=== PATIENT | female | born 1940 | race Hispanic/Latino ===

== ENCOUNTER → 2018-09-16 | Day surgery (SDC) | payer OTHER ==
[2018-09-14 10:04] LABS: BASOPHILS % 0.6 % (0.0-1.0); EOSINOPHILS # (AUTO) 0.2 (0.0-0.4); EOSINOPHILS % 2.8 % (0.0-6.0); HEMATOCRIT 33.4 % (34.2-44.1); HEMOGLOBIN 10.8 g/dL (12.0-16.0); LYMPHOCYTES # (AUTO) 1.7 (1.0-3.2); LYMPHOCYTES % 24.2 % (18.0-39.1); MEAN CORPUSCULAR HGB CONC 32.3 g/dL (31-35); MEAN CORPUSCULAR VOLUME 92.8 fL (81-99); MONOCYTES # (AUTO) 0.6 (0.2-0.8); NEUTROPHILS # (AUTO) 4.4 (2.1-6.9); PLATELET COUNT 265 x10e3/uL (140-360); RED CELL DISTRIBUTION WIDTH 14.2 % (11.7-14.4)
[~2018-09-16] MED LIST: ADVAIR 250-501 EACH INH; ATORVASTATIN CA10 MG PO; CALCIUM CARBON500 MG PO; CRESTOR10 MG PO; FERROUS SULFAT324 MG PO; FISH OIL 1,2001 EACH PO; FLUTICASONE PRO16 GM; MELOXICAM7.5 MG PO; MIDAZOLAM HCL 2 MG/2 ML VIAL ONE; OMEPRAZOLE40 MG PO; ONDANSETRON2 MG/1 ML PO; OXYBUTYNIN CHLOR5 MG PO; PROPOFOL IV EMULSION 10 MG/ML 20 ML VIAL ONE; VITAMIN B-121000 MC2 PO; VITAMIN D31000 UNIT PO
--- OUTSIDE RECORDS SUMMARY | 2018-09-16 07:25 | XMS REPORT ---
Author Author [facility] Address Unknown Phone Unavailable Care Team Providers Care Director Of Real Estate Name Role Phone Unavailable Unavailable Payers Payer Name Policy Type Policy Number Effective Date Expiration Date Problems This patient has no known problems. Allergies, Adverse Reactions, Alerts Allergy Name Allergy Type Status Severity Reaction(s) Onset Date Inactive Date Treating Clinician Comments No Known Allergies DA Active U 2016-10-17 00:00:00 Medications This patient has no known medications.
--- OUTSIDE RECORDS SUMMARY | 2018-09-16 07:26 | XMS REPORT ---
Author Organization Unknown Address [address] [place] [address] Phone [phone] Care Team Providers [facility] Director Name Role Phone RASHEL "ALYSE" SAIMA BROWN 3 [phone] DAMEON GEORGE 63 Unavailable DA BROWN MD 107 [phone] CHANTALE LUO MD 111 [phone] Allergies Code Code System Name Reaction Severity Status Onset No Known Allergies Deactivated NKDA Medications Name Status Start Date Stop Date acetaminophen 300 mg-codeine 30 mg tablet Completed 11/28/2016 Advair Diskus 250 mcg-50 mcg/dose powder for inhalation inhalar 1 actuacion dos veces cada everardo todos los carney Active Not available atorvastatin 40 mg tablet TAKE 1 TABLET BY MOUTH EVERY DAY Completed 01/05/2018 chlorhexidine gluconate 0.12 % mouthwash Completed 08/05/2016 diazepam 5 mg tablet negro 1 tableta por via oral hasta 3 veces cada everardo Active Not available Dulcolax Stool Softener (docusate) 100 mg capsule negro 2 capsulas por via oral dread vez cada everardo por jose necearia estrenimiento Active Not available fluticasone 50 mcg/actuation nasal spray,suspension Active Not available Fluzone High-Dose 4593-3694 (PF) 180 mcg/0.5 mL intramuscular syringe Completed 08/21/2017 Generlac 10 gram/15 mL oral solution Completed 02/26/2017 ketoconazole 2 % topical cream Completed 09/23/2017 meloxicam 15 mg tablet negro 1 tableta por via oral dread vez cada everardo Active Not available meloxicam 7.5 mg tablet Completed 01/10/2018 omeprazole 40 mg capsule,delayed release Active Not available oxybutynin chloride ER 10 mg tablet,extended release 24 hr negro 1 tableta por via oral dread vez cada everardo Active Not available rosuvastatin 20 mg tablet negro 1 tableta por via oral dread vez cada everardo Active Not available Suprep Bowel Prep Kit 17.5 gram-3.13 gram-1.6 gram oral solution Completed 02/26/2017 tramadol 50 mg tablet negro 1 tableta por via oral hasta 3 veces cada everardo por jose taylor patel Active Not available Travatan Z 0.004 % eye drops Completed 08/21/2017 triamcinolone acetonide 0.1 % topical cream Active Not available Problems Name Status Onset Date Source Pure Hypercholesterolemia Active 09/11/2015 History Glaucoma Active 09/11/2015 History Varicose Veins of Lower Extremity with Inflammation Unknown 09/11/2015 History Gill's Esophagus Unknown 09/11/2015 History 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 and without Gangrene Unknown 09/11/2015 History Diaphragmatic Hernia Unknown 09/11/2015 History Genuine Stress Incontinence Active 09/11/2015 History Itching Unknown 09/11/2015 History Osteoarthritis of Hip Active 09/11/2015 History Spinal Stenosis in Cervical Region Active 09/11/2015 History Neck Pain Active 09/11/2015 History Gastroesophageal Reflux Disease Active 08/05/2016 Constipation Active 11/28/2016 Prediabetes Active 09/23/2017 Chronic Obstructive Lung Disease Active 01/08/2018 Procedures Date Name Performed by 01/27/2017 Colonoscopy Information not available 11/28/2016 Bone Density, Dual Photon Absorptiometry [employer] [facility] ([facility]) [address] [place], [place] [id number] (Work Place) 04/08/2017 XR, Ankle, 3 or More View [facility] ([facility]) [address] [place], [place] [id number] (Work Place) 04/08/2017 XR, Foot, 2 View [facility] ([facility]) [address] [place], [place] [id number] (Work Place) 06/17/2017 MAMMO, Screening, Bilateral [facility] [address] [place], [place] [id number] (Work Place) Notes: 02/19/2016: S/P x 2; Surgery Date: [id number] S/P Bilateral Bunion Surgery; Surgery Date: 1994 S/P R Carpal Tunnel Surgery; Surgery Date: 2004 S/P Bilateral Cataract Surgery; Surgery Date: S/P Bilateral Glaucoma Surgery; Surgery Date: 1992 Lab Results Date Name Specimen Result Interpretation Description Value Range Status Address 01/05/2018 Lipid Panel, Serum Normal Cholesterol, Total 157 mg/dL <200 mg/dL Final [facility]: [address] Normal HDL Cholesterol 90 mg/dL >50 mg/dL Final [facility]: [address] Normal Triglycerides 63 mg/dL <150 mg/dL Final [facility]: [address] Normal LDL-cholesterol 53 mg/dL (calc) Final [facility]: [address] Normal Chol/hdlc Ratio 1.7 (calc) <5.0 (calc) Final [facility]: [address] Normal Non HDL Cholesterol 67 mg/dL (calc) <130 mg/dL (calc) Final [facility]: [address] 01/05/2018 HbA1C (Hemoglobin a1C), Blood High Hemoglobin a1C 5.9 % of total HGB <5.7 % of total HGB Final [facility]: [address] EAG (mg/dL) 123 (calc) Final [facility]: [address] EAG (mmol/L) 6.8 (calc) Final [facility]: [address] 01/05/2018 CMP, Serum or Plasma Normal Glucose 94 mg/dL 65-99 mg/dL Final [facility]: [address] Normal Urea Nitrogen (BUN) 13 mg/dL 7-25 mg/dL Final [facility]: [address] Normal Creatinine 0.74 mg/dL 0.60-0.93 mg/dL Final [facility]: [address] Normal eGFR Non-afr. Nauruan 79 mL/min/1.73m2 > or=60 mL/min/1.73m2 Final [facility]: [address] Normal eGFR 92 mL/min/1.73m2 > or=60 mL/min/1.73m2 Final [facility]: [address] Loza [address] BUN/creatinine Ratio not applicable (calc) 6-22 (calc) Final [facility]: 9055 [facility] Sodium 138 mmol/L 135-146 mmol/L Final [facility]: [address] Su[address] [place] [address] Normal Potassium 4.9 mmol/L 3.5-5.3 mmol/L Final [facility]: 9055 Katy Loza [facility] Chloride 99 mmol/L 98-110 mmol/L Final [facility]: [address] Loza [address] Normal Carbon Dioxide 30 mmol/L 20-31 mmol/L Final [facility]: [address] Lo[address] Normal Calcium 10.1 mg/dL 8.6-10.4 mg/dL Final [facility]: [address] Normal Protein, Total 7.3 g/dL 6.1-8.1 g/dL Final [facility]: [address] Normal Albumin 4.1 g/dL 3.6-5.1 g/dL Final [facility]: [address] Normal Globulin 3.2 g/dL (calc) 1.9-3.7 g/dL (calc) Final [facility]: [address] Normal Albumin/globulin Ratio 1.3 (calc) 1.0-2.5 (calc) Final [facility]: [address] Normal Bilirubin, Total 0.7 mg/dL 0.2-1.2 mg/dL Final [facility]: [address] Su[address] [place] [address] Normal Alkaline Phosphatase 60 U/L 33-130 U/L Final [facility]: [address] Loza [address] Normal Ast 22 U/L 10-35 U/L Final [facility]: [address] Loza [address] Normal Alt 18 U/L 6-29 U/L Final [facility]: 9055 [facility] 01/05/2018 TSH, Serum or Plasma Normal Tsh 1.36 mIU/L 0.40-4.50 mIU/L Final [facility]: 9055 Ney Kilpatrick 01/05/2018 CBC W/ Auto Diff Normal White Blood Cell Count 6.9 thousand/uL 3.8-10.8 thousand/uL Final [facility]: [address] Ney [address] Normal Red Blood Cell Count 4.13 million/uL 3.80-5.10 million/uL Final [facility]: 9042 [address] Normal Hemoglobin 12.7 g/dL 11.7-15.5 g/dL Final [facility]: 9085 Katy Ryan [address] Normal Hematocrit 38.7 % 35.0-45.0 % Final [facility]: 9033 Katy Ryan Cash Normal Mcv 93.7 fL 80.0-100.0 fL Final [facility]: 9033 Katy Ryan [address] Normal Mch 30.8 pg 27.0-33.0 pg Final [facility]: 9057 Katy Ryan Cash Normal Mchc 32.8 g/dL 32.0-36.0 g/dL Final [facility]: 9039 Katy Ryan Cash Normal Rdw 12.4 % 11.0-15.0 % Final [facility]: 9031 Katy Ryan [address] Normal Platelet Count 261 thousand/uL 140-400 thousand/uL Final [facility]: 9009 Katy Ryan [address] Normal Mpv 8.8 fL 7.5-12.5 fL Final [facility]: 9003 Katy Ryan [address] Normal Absolute Neutrophils 3843 cells/uL 4178-9469 cells/uL Final [facility]: 9001 Katy Ryan Cash Normal Absolute Lymphocytes 2318 cells/uL 850-3900 cells/uL Final [facility]: 9070 Katy Ryan Cash Normal Absolute Monocytes 566 cells/uL 200-950 cells/uL Final [facility]: 9081 Katy Ryan Cash Normal Absolute Eosinophils 131 cells/uL 15-500 cells/uL Final [facility]: 9000 Katy Ryan Cash Normal Absolute Basophils 41 cells/uL 0-200 cells/uL Final [facility]: 9075 Katy Ryan Cash Normal Neutrophils 55.7 % Final [facility]: [address] Normal Lymphocytes 33.6 % Final [facility]: [address] Normal Monocytes 8.2 % Final [facility]: [address] Normal Eosinophils 1.9 % Final [facility]: [address] Normal Basophils 0.6 % Final [facility]: [address] [place] [address] 01/05/2018 T4, Total, Serum Normal T4 (Thyroxine), Total 9.3 mcg/dL 4.5-12.0 mcg/dL Final [facility]: [address] 01/05/2018 Spirometry Spirometry: [facility]: [address], Cash Fev1: [facility]: [address] [facility] [address], Cash Fvc: [facility]: [address] [facility] [address], Cash Restriction: [facility]: [address], Cash Obstruction: [facility]: [address] [facility] Suite [facility], Cash Notes: [facility]: [address] [place] [address], Cash 08/21/2017 Lipid Panel, Serum Normal Cholesterol, Total 149 mg/dL <200 mg/dL Final [facility]: [address] Normal HDL Cholesterol 80 mg/dL >50 mg/dL Final [facility]: [address] [place] [address] Normal Triglycerides 54 mg/dL <150 mg/dL Final [facility]: [address] Normal LDL-cholesterol 56 mg/dL (calc) Final [facility]: [address] Normal Chol/hdlc Ratio 1.9 (calc) <5.0 (calc) Final [facility]: [address] Normal Non HDL Cholesterol 69 mg/dL (calc) <130 mg/dL (calc) Final [facility]: [facility] [address] 08/21/2017 HbA1C (Hemoglobin a1C), Blood High Hemoglobin a1C 5.9 % of total HGB <5.7 % of total HGB Final [facility]: [address] EAG (mg/dL) 123 (calc) Final [facility]: 9055 Katy Ryan Cash EAG (mmol/L) 6.8 (calc) Final [facility]: 9055 Ney Kilpatrick 08/21/2017 CBC W/ Auto Diff Normal White Blood Cell Count 5.7 thousand/uL 3.8-10.8 thousand/uL Final [facility]: 9055 Katy Ryan Cash Normal Red Blood Cell Count 3.98 million/uL 3.80-5.10 million/uL Final [facility]: 9055 Katy Ryan Cash Normal Hemoglobin 11.7 g/dL 11.7-15.5 g/dL Final [facility]: 9055 Katy Ryan Cash Normal Hematocrit 37.6 % 35.0-45.0 % Final [facility]: 9055 Katy Ryan Cash Normal Mcv 94.5 fL 80.0-100.0 fL Final [facility]: 9055 Katy Ryan Cash Normal Mch 29.4 pg 27.0-33.0 pg Final [facility]: 9055 Katy Ryan Cash Low Mchc 31.1 g/dL 32.0-36.0 g/dL Final [facility]: 9055 Katy Ryan Cash Normal Rdw 13.0 % 11.0-15.0 % Final [facility]: 9055 Katy Ryan Cash Normal Platelet Count 267 thousand/uL 140-400 thousand/uL Final [facility]: 9055 Katy Ryan Cash Normal Mpv 8.9 fL 7.5-12.5 fL Final [facility]: 9055 Katy Ryan Cash Normal Absolute Neutrophils 3449 cells/uL 9489-6419 cells/uL Final [facility]: 9055 Katy Ryan Cash Normal Absolute Lymphocytes 1699 cells/uL 850-3900 cells/uL Final [facility]: 9055 [facility] Normal Absolute Monocytes 371 cells/uL 200-950 cells/uL Final [facility]: 9055 [facility] Normal Absolute Eosinophils 143 cells/uL 15-500 cells/uL Final [facility]: 9055 Katy Ryan Cash Normal Absolute Basophils 40 cells/uL 0-200 cells/uL Final [facility]: 9055 Katy Ryan, Cash Normal Neutrophils 60.5 % Final [facility]: [address], Cash Normal Lymphocytes 29.8 % Final [facility]: 9055 Katy Ryan, Cash Normal Monocytes 6.5 % Final [facility]: [address]055 [address] Lo[address] [place] [address], Cash Normal Eosinophils 2.5 % Final [facility]: 9055 [address] Lo[address] [place] [address], Cash Normal Basophils 0.7 % Final [facility]: 9055 [facility] 08/21/2017 CMP, Serum or Plasma Normal Glucose 95 mg/dL 65-99 mg/dL Final [facility]: [address] Loza [address] Normal Urea Nitrogen (BUN) 17 mg/dL 7-25 mg/dL Final [facility]: [address] Normal Creatinine 0.71 mg/dL 0.60-0.93 mg/dL Final [facility]: [address] Loza [address] Normal eGFR Non-afr. Nauruan 84 mL/min/1.73m2 > or=60 mL/min/1.73m2 Final [facility]: [address] Loza [address] Normal eGFR 97 mL/min/1.73m2 > or=60 mL/min/1.73m2 Final [facility]: [address] BUN/creatinine Ratio not applicable (calc) 6-22 (calc) Final [facility]: [address] Suarez [address] [place] [address] Normal Sodium 139 mmol/L 135-146 mmol/L Final [facility]: [address] Loza [address] Normal Potassium 5.1 mmol/L 3.5-5.3 mmol/L Final [facility]: [address] Suarez [address] [place] [address] Normal Chloride 101 mmol/L 98-110 mmol/L Final [facility]: [address] Loza [address] Normal Carbon Dioxide 31 mmol/L 20-31 mmol/L Final [facility]: [address] Loza [address] Normal Calcium 9.3 mg/dL 8.6-10.4 mg/dL Final [facility]: [address] [place] [address], Cash Normal Protein, Total 6.7 g/dL 6.1-8.1 g/dL Final [facility]: [address] [place] [address], Cash Normal Albumin 4.0 g/dL 3.6-5.1 g/dL Final [facility]: [address] Normal Globulin 2.7 g/dL (calc) 1.9-3.7 g/dL (calc) Final [facility]: [address] [place] [address], Cash Normal Albumin/globulin Ratio 1.5 (calc) 1.0-2.5 (calc) Final [facility]: [address] Normal Bilirubin, Total 0.5 mg/dL 0.2-1.2 mg/dL Final [facility]: [address] Normal Alkaline Phosphatase 56 U/L 33-130 U/L Final [facility]: [address] Normal Ast 20 U/L 10-35 U/L Final [facility]: [address] Normal Alt 17 U/L 6-29 U/L Final [facility]: [address] 06/17/2017 Pap, IG + HPV mRNA E6/E7 Normal Clinical Information: none given Final [facility]: [address] Normal Lmp: Na Final [facility]: [address] Normal Prev. Pap: Na Final [facility]: [address] Normal Prev. BX: Na Final [facility]: [address] Normal Source: cervix Final [facility]: [address] Normal Statement of Adequacy: Final [facility]: [address] Normal Interpretation/result: Final [facility]: [address] Normal Comment: Final [facility]: [address] Normal Rehabilitation Services Director: Final [facility]: [address] Normal Hpv Mrna E6/E7 not detected not detected Final [facility]: [address] [place] [address], Cash 02/26/2017 Rf (Rheumatoid Factor), Serum Normal Rheumatoid Factor 8 IU/mL <14 IU/mL Final [facility]: [address] [place] [address] 02/26/2017 T4, Total, Serum Normal T4 (Thyroxine), Total 7.1 mcg/dL 4.5-12.0 mcg/dL Final [facility]: [address] [place] [address] 02/26/2017 C-reactive Protein, Quantitative Normal C-reactive Protein <0.10 mg/dL <0.80 mg/dL Final [facility]: [address] [place] [address], Cash 02/26/2017 Ccp (Cyclic Citrullinated Peptide) Igg, Serum Normal Cyclic Citrullinated Peptide (Ccp) Ab (IgG) <16 units Final [facility]: [address] [place] [address] 02/26/2017 CMP, Serum or Plasma High Glucose 119 mg/dL 65-99 mg/dL Final [facility]: [address] [place] [address] Normal Urea Nitrogen (BUN) 23 mg/dL 7-25 mg/dL Final [facility]: [address] [place] [address] Normal Creatinine 0.76 mg/dL 0.60-0.93 mg/dL Final [facility]: [address] [place] [address] Normal eGFR Non-afr. Nauruan 77 mL/min/1.73m2 > or=60 mL/min/1.73m2 Final [facility]: [address] [place] [address] Normal eGFR 90 mL/min/1.73m2 > or=60 mL/min/1.73m2 Final [facility]: [address] [place] [address] BUN/creatinine Ratio not applicable (calc) 6-22 (calc) Final [facility]: [address] [place] [address] Normal Sodium 138 mmol/L 135-146 mmol/L Final [facility]: [address] [place] [address] Normal Potassium 4.6 mmol/L 3.5-5.3 mmol/L Final [facility]: [address] [place] [address] Normal Chloride 102 mmol/L 98-110 mmol/L Final [facility]: [address] Normal Carbon Dioxide 29 mmol/L 20-31 mmol/L Final [facility]: [address] Normal Calcium 9.2 mg/dL 8.6-10.4 mg/dL Final [facility]: [address] Normal Protein, Total 6.4 g/dL 6.1-8.1 g/dL Final [facility]: [address] Normal Albumin 3.7 g/dL 3.6-5.1 g/dL Final [facility]: [address] Normal Globulin 2.7 g/dL (calc) 1.9-3.7 g/dL (calc) Final [facility]: [address] Normal Albumin/globulin Ratio 1.4 (calc) 1.0-2.5 (calc) Final [facility]: [facility] [address] Normal Bilirubin, Total 0.5 mg/dL 0.2-1.2 mg/dL Final [facility]: [address] Normal Alkaline Phosphatase 60 U/L 33-130 U/L Final [facility]: [address] Normal Ast 18 U/L 10-35 U/L Final [facility]: [address] Normal Alt 15 U/L 6-29 U/L Final [facility]: [address] [place] [address] 02/26/2017 INDIO (Antinuclear Antibodies) Titer + Pattern, Ifa, Serum ABNORMAL INDIO Screen, Ifa positive negative Final [facility]: [facility] [address] ABNORMAL INDIO Pattern nucleolar Final [facility]: [facility] [address] High INDIO Titer 1:40 titer Final [facility]: [address] [place] [address] 02/26/2017 Erythrocyte Sedimentation Rate by Westergren Method Normal Sed Rate by Modified Westergren 9 mm/h < or=30 mm/h Final [facility]: [address] [place] [address] 02/26/2017 CBC W/ Auto Diff Normal White Blood Cell Count 4.1 thousand/uL 3.8-10.8 thousand/uL Final [facility]: 9055 Katy Ryan [address] Normal Red Blood Cell Count 3.84 million/uL 3.80-5.10 million/uL Final [facility]: 9055 [address] Ryan [address]ster Low Hemoglobin 11.4 g/dL 11.7-15.5 g/dL Final [facility]: 9055 [address] Ryan Cash Normal Hematocrit 35.3 % 35.0-45.0 % Final [facility]: 9055 [address] Ryan Cash Normal Mcv 91.9 fL 80.0-100.0 fL Final [facility]: 9055 [address]y Ryan Cash Normal Mch 29.8 pg 27.0-33.0 pg Final [facility]: 9055 Katy Ryan Cash Normal Mchc 32.5 g/dL 32.0-36.0 g/dL Final [facility]: [address] 15.5 % 11.0-15.0 % Final [facility]: 9066 Katy Ryan Cash Normal Platelet Count 236 thousand/uL 140-400 thousand/uL Final [facility]: 9002 Katy Ryan Cash Low Mpv 7.2 fL 7.5-12.5 fL Final [facility]: 9038 Katy Ryan Brewster Normal Absolute Neutrophils 2116 cells/uL 8402-6819 cells/uL Final [facility]: 9036 Katy Ryan Cash Normal Absolute Lymphocytes 1529 cells/uL 850-3900 cells/uL Final [facility]: 9043 Katy Ryan Cash Normal Absolute Monocytes 308 cells/uL 200-950 cells/uL Final [facility]: 9089 Katy Ryan Cash Normal Absolute Eosinophils 127 cells/uL 15-500 cells/uL Final [facility]: 9074 Katy Ryan Cash Normal Absolute Basophils 21 cells/uL 0-200 cells/uL Final [facility]: 9079 Katy Ryan Cash Normal Neutrophils 51.6 % Final [facility]: 9068 Katy Ryan Cash Normal Lymphocytes 37.3 % Final [facility]: 9035 Katy Ryan Cash Normal Monocytes 7.5 % Final [facility]: [address] Normal Eosinophils 3.1 % Final [facility]: [address] Normal Basophils 0.5 % Final [facility]: [address] [place] [address], Cash 02/26/2017 Vitamin D, 25-Hydroxy, Total, Serum Normal Vitamin D,25-Oh,total,ia 33 NG/mL 30-100 NG/mL [facility] [facility]: [address] [address], [place] 02/26/2017 TSH, Serum or Plasma Normal Tsh 2.45 mIU/L 0.40-4.50 mIU/L Final [facility] Laboratory: [address] [address], [place] 02/26/2017 Lipid Panel, Serum Normal Cholesterol, Total 132 mg/dL 125- 200 mg/dL Final [facility] Laboratory: [address] Normal HDL Cholesterol 71 mg/dL > or=46 mg/dL Final [facility] Laboratory: [address] Normal Triglycerides 77 mg/dL <150 mg/dL Final [facility] Laboratory: [address] Normal LDL-cholesterol 46 mg/dL (calc) <130 mg/dL (calc) Final [facility] Laboratory: [address] Normal Chol/hdlc Ratio 1.9 (calc) < or=5.0 (calc) Final [facility] Laboratory: [address] Normal Non HDL Cholesterol 61 mg/dL (calc) Final [facility] Laboratory: [address] 11/28/2016 Lipid Panel, Serum Normal Cholesterol, Total 142 mg/dL 125- 200 mg/dL Final [facility] Lab: [address], [place] Normal HDL Cholesterol 69 mg/dL > or=46 mg/dL Final [facility] Lab: [address], [place] Normal Triglycerides 44 mg/dL <150 mg/dL Final [facility] Lab: [address], [place] Normal LDL-cholesterol 64 mg/dL (calc) <130 mg/dL (calc) Final [facility] Lab: [address], [place] Normal Chol/hdlc Ratio 2.1 (calc) < or=5.0 (calc) Final [facility] Lab: [address] [facility], [place] Normal Non HDL Cholesterol 73 mg/dL (calc) Final [facility] Lab: [address], [place] 11/28/2016 CMP, Serum or Plasma High Glucose 104 mg/dL 65-99 mg/dL Final [facility] Lab: [address], [place] Normal Urea Nitrogen (BUN) 13 mg/dL 7-25 mg/dL Final [facility] Lab: [address], [place] Normal Creatinine 0.69 mg/dL 0.60-0.93 mg/dL Final [facility] Lab: [address], [place] Normal eGFR Non-afr. Nauruan 86 mL/min/1.73m2 > or=60 mL/min/1.73m2 Final [facility] Lab: [address], [place] Normal eGFR 99 mL/min/1.73m2 > or=60 mL/min/1.73m2 Final [facility] Lab: [address], [place] BUN/creatinine Ratio not applicable (calc) 6-22 (calc) Final [facility] Lab: [address], [place] Normal Sodium 137 mmol/L 135-146 mmol/L Final [facility] Lab: [address], [place] Normal Potassium 4.4 mmol/L 3.5-5.3 mmol/L Final [facility] Lab: [address], [place] Normal Chloride 102 mmol/L 98-110 mmol/L Final [facility] Lab: [address], [place] Normal Carbon Dioxide 30 mmol/L 20-31 mmol/L Final [facility] Lab: [address], [place] Normal Calcium 9.3 mg/dL 8.6-10.4 mg/dL Final [facility] Lab: [address], [place] Normal Protein, Total 7.1 g/dL 6.1-8.1 g/dL Final [facility] Lab: [address], [place] Normal Albumin 3.7 g/dL 3.6-5.1 g/dL Final [facility] Lab: [address], [place] Normal Globulin 3.4 g/dL (calc) 1.9-3.7 g/dL (calc) Final [facility] Lab: [address], [place] Normal Albumin/globulin Ratio 1.1 (calc) 1.0-2.5 (calc) Final [facility] Lab: [address], [place] Normal Bilirubin, Total 0.3 mg/dL 0.2-1.2 mg/dL Final [facility] Lab: [address] [facility], [place] Normal Alkaline Phosphatase 69 U/L 33-130 U/L Final [facility] Lab: [address] [facility], [place] Normal Ast 18 U/L 10-35 U/L Final [facility] Lab: [address] [facility], [place] Normal Alt 10 U/L 6-29 U/L Final [facility] Lab: [address], [place] 11/28/2016 CBC W/ Auto Diff Normal White Blood Cell Count 5.6 thousand/uL 3.8-10.8 thousand/uL Final [facility] Lab: [address], [place] Low Red Blood Cell Count 3.68 million/uL 3.80-5.10 million/uL Final [facility] Lab: [address], [place] Low Hemoglobin 11.2 g/dL 11.7-15.5 g/dL Final [facility] Lab: [address] [facility], [place] Low Hematocrit 34.4 % 35.0-45.0 % Final [facility] Lab: [address] [facility], [place] Normal Mcv 93.4 fL 80.0-100.0 fL Final [facility] Lab: [address] [facility], [place] Normal Mch 30.3 pg 27.0-33.0 pg Final [facility] Lab: [address] [facility], [place] Normal Mchc 32.4 g/dL 32.0-36.0 g/dL Final [facility] Lab: [address], [place] Normal Rdw 14.2 % 11.0-15.0 % Final [facility] Lab: [address] [facility], [place] Normal Platelet Count 291 thousand/uL 140-400 thousand/uL Final [facility] Lab: [address] [facility], [place] Normal Mpv 7.6 fL 7.5-12.5 fL Final [facility] Lab: [address], [place] Normal Absolute Neutrophils 3422 cells/uL 5757-9679 cells/uL Final [facility] Lab: [address], [place] Normal Absolute Lymphocytes 1646 cells/uL 850-3900 cells/uL Final [facility] Lab: [address], [place] Normal Absolute Monocytes 381 cells/uL 200-950 cells/uL Final [facility] Lab: [address], [place] Normal Absolute Eosinophils 129 cells/uL 15-500 cells/uL Final [facility] Lab: [address], [place] Normal Absolute Basophils 22 cells/uL 0-200 cells/uL Final [facility] Lab: [address], [place] Normal Neutrophils 61.1 % [facility] Lab: [address], [place] Normal Lymphocytes 29.4 % [facility] Lab: [address], [place] Normal Monocytes 6.8 % Final [facility] Lab: [address], [place] Normal Eosinophils 2.3 % [facility] Lab: [address], [place] Normal Basophils 0.4 % Final [facility] [employer] [facility] Lab: [address], [place] Past Encounters 01/05/2018 Adult Health Examination; Body Mass Index 20-24 - Normal; Constipation; Atherosclerosis of [place] Arteries of the Extremities; Pure Hypercholesterolemia; Prediabetes; Glaucoma; Gastroesophageal Reflux Disease; Osteoarthritis of Hip; Spinal Stenosis in Cervical Region; Neck Pain; Low Back Pain; Genuine Stress Incontinence; Chronic Obstructive Lung Disease; Depression Screening; Advance Directive Discussed with Patient; Screening for Malignant Neoplasm of Colon; Screening for Malignant Neoplasm of Breast; Screening for Osteoporosis Rashel Ruff MD: [id number] [facility], [address] [address], Ph. 12/16/2017 Sera Stern: [address] [facility], [address], [place] [address], Ph. 11/18/2017 Sera Stern: [address] [facility], [address], [place] [address], Ph. 10/28/2017 Sera Stern: [address] [facility] [address], [place] [address], Ph. 09/30/2017 Sera Stern: [address] [facility], [place] [address], Ph. 09/23/2017 Neck Pain; Atopic Dermatitis BRIDGETT Barboza: 135[address] [facility], [facility] [address], [place] [address], Ph. 08/26/2017 eSra Stern: [address] [facility], [facility] [address], [place] [address], Ph. 08/21/2017 Genuine Stress Incontinence; Gastroesophageal Reflux Disease; Neck Pain; Tinea Pedis; Pure Hypercholesterolemia; Hyperglycemia; Body Mass Index 20-24 - Normal BRIDGETT Barboza: [id number] [facility], [address] [address], [place] [address], Ph. 08/10/2017 Asthma; Constipation; Osteoarthritis of Hip Sera Stren: [address] [facility], [address] [address], [place] [address], Ph. 07/06/2017 Sera Stern: [address] [facility], [address] [address], [place] [address], Ph. 06/17/2017 Postmenopausal Bleeding; Tinea Pedis; Screening Mammography; Gastroesophageal Reflux Disease BRIDGETT Barboza: [id number] [facility], [facility] [address], [place] [address], Ph. 04/08/2017 Dameon George: [address] [facility], [address] [address], [place] [address], Ph. 03/05/2017 Anti-nuclear Factor Positive; Pain in Both Feet BRIDGETT Barboza: [address]67 [facility], [facility] [address], [place] [address], Ph. 02/26/2017 Pure Hypercholesterolemia; Genuine Stress Incontinence; Tinea Pedis; Neck Pain; Fatigue; Pain in Both Feet BRIDGETT Barboza: [address] [address], Ph. 12/31/2016 Dameon George: [address] [address], Ph. 12/02/2016 Asthma; Constipation; Osteoarthritis of Hip Dameon George: [address] [address], Ph. 11/28/2016 Adult Health Examination; Body Mass Index 20-24 - Normal; Asthma; Pure Hypercholesterolemia; Tinea Pedis; Gastroesophageal Reflux Disease; Varicose Veins of Lower Extremity; Constipation; Advance Directive Discussed with Patient; Postmenopausal State; Screening for Malignant Neoplasm of Colon; Diaphragmatic Hernia; Genuine Stress Incontinence; Neck Pain; Spinal Stenosis in Cervical Region; Glaucoma BRIDGETT Barboza: [address] [address], Ph. 10/23/2016 Germania Ruff: [address] [address], Ph. 10/22/2016 Follow-up Visit; Fracture of Radius BRIDGETT Barboza: [address] [address], Ph. 08/05/2016 Neck Pain; Genuine Stress Incontinence; Constipation; Pure Hypercholesterolemia; Fatigue; Immunization; Tinea Pedis; Allergic Rhinitis BRIDGETT Barboza: [address] [address], Ph. Social History Smoking Status Never Smoker Vaccine List Vaccine Type influenza, high dose seasonal 08/05/20160.5 mL influenza, injectable, quadrivalent 07/14/2017 influenza, seasonal, injectable 06/27/2015 pneumococcal polysaccharide PPV23 11/29/2015 Plan of Care Patient Instructions Problem: The patient has a diagnosis of Asthma. Goal: The patients condition will be managed in the outpatient setting and will maintain a clear airway and have decreased episodes of asthma attacks. Interventions: -Educate patient that common triggers are house dust, molds, animal dander, smoking, outdoor danders, weather, infection, weather, infection, heartburn, and learning coach roaches. -Educate patient to take medication as prescribed. -Educate patient that regular exercise helps improve lung function. -Educate to use the quick-acting inhaler first. Wait a few minutes and then use the preventive/anti-inflammatory inhaler so the medication can get into the lungs better. -Educate patient to shake the inhaler, on inhalation make sure they understand they need to hold their breath for 10 seconds. -Educate patient for steroid inhalers; rinse your mouth out after use to reduce the risk of a yeast infection or sore throat. -Educate pt to have a pneumococcal vaccine shot if not already had one and a flu vaccine annually Problem: Constipation. Goal:The patient's condition will be managed in the outpatient setting. The patient will experience decreased episodes of constipation. Interventions: -Educate patient to eat high fiber foods to avoid constipation such as whole grains, fruits, vegetables, beans, prunes, hot liquids, dried fruits-apricots, raisins, avoid caffeine-it can be dehydrating, avoid milk, cheese, ice cream which an constipate. -Educate patient to stay hydrated and increase water intake (2-4 extra glasses of water a day) to prevent dry hard stools, take fiber pills or any prescribed stool softener/laxative as directed, drink warm prune juice. -Educate patient to be active, exercise to help move bowels and prevent constipation. -Educate patient to go to the bathroom at time of feeling urge to prevent constipation, or hard stool - Encourage pt to report no BM >3days Problem: L arm Fx with cast Goal: Patient will demonstrate proper care of cast until fx is healed and cast is removed Interventions: - Encouraged pt to check cast every day for cracks, dents, holes, or flaking - Keep cast clean and dry. - Do not pull or repair any of the padding from inside the cast. This could cause blisters and sores on the skin under your cast. -Keep weight off your cast. Do not let anyone push down or lean on your cast. This may cause it to break. -Do not use sharp objects. Do not use a sharp or pointed object to scratch under your cast. This may cause wounds that can get infected. If your skin itches, blow cool air under the cast. You may also gently scratch your skin outside the cast with a cloth. - Call healthcare provider to report : swelling, odor, drainage, temperature skin turns blue or pale, skin tingles, plummer, or is cold or numb severe pain that is getting worse and does not go away after you take pain medicine Your limb swells, or your cast looks or feels tighter than it was before. It was good to see you in the office today for your Medicare Annual Wellness Visit. You have been provided some information on healthy nutrition, including a diet rich in fruits and vegetables, minimizing simple carbohydrates, salt, and saturated fats. I want to encourage regular cardiovascular exercise such as walking at least 30 minutes daily, 5 times per week. Please remember to schedule any preventive health measures that we talked about today. You have also been provided education on fall prevention and community- based lifestyle interventions to help reduce health risks and promote healthy living in your [employer]ng[employer] folder. Advised patient to take pain medication as prescribed, apply ice when swelling occurs, to elevate or keep arm in sling to help with pain and swelling and to call office if she has any fever, n/v, increase in swelling, pain, bleeding, or s/s of infection. Reminders Provider Appointments None recorded. Lab None recorded. Referral None recorded. Procedures None recorded. Surgeries None recorded. Imaging None recorded. Vitals 01/05/2018 09:00AM [employer] [facility] Height Weight BMI Blood Pressure 5 ft 0.5 in 119 lbs 22.9 kg/m2 126/71 mm[Hg] 09/23/2017 07:45AM Est Patient Height Weight BMI Blood Pressure 5 ft 0.5 in 121 lbs 23.2 kg/m2 135/78 mm[Hg] 08/21/2017 01:15PM Est Patient Height Weight BMI Blood Pressure 5 ft 0.5 in 122 lbs 23.4 kg/m2 143/76 mm[Hg] 06/17/2017 03:30PM Work In Same Day Height Weight BMI Blood Pressure 5 ft 0.5 in 120.6 lbs 23.2 kg/m2 134/75 mm[Hg] 03/05/2017 11:15AM Est Patient Height Weight BMI Blood Pressure 5 ft 0.5 in 122.6 lbs 23.5 kg/m2 119/69 mm[Hg] 02/26/2017 10:00AM Est Patient Height Weight BMI Blood Pressure 5 ft 0.5 in 124.6 lbs 23.9 kg/m2 134/73 mm[Hg] 11/28/2016 09:30AM [employer] [facility] Height Weight BMI Blood Pressure 5 ft 0.5 in 120.6 lbs 23.2 kg/m2 139/73 mm[Hg] 10/22/2016 01:30PM Est Patient Height Weight BMI Blood Pressure 5 ft 0.5 in 123.6 lbs 23.7 kg/m2 (1) 145/76 mm[Hg] (2) 126/68 mm[Hg] 08/05/2016 10:00AM Est Patient Height Weight BMI Blood Pressure 5 ft 0.5 in 118.6 lbs 22.8 kg/m2 140/83 mm[Hg] 02/19/2016 Height Weight BMI Blood Pressure 5 ft 0.5 in 120 lbs 23.05 kg/m2 130/66 mm[Hg] 11/29/2015 Blood Pressure 112/68 mm[Hg] 11/29/2015 Height Weight BMI 5 ft 0.5 in 120 lbs 23.05 kg/m2 09/11/2015 Height Weight BMI Blood Pressure 5 ft 0.5 in 123 lbs 23.62 kg/m2 110/70 mm[Hg] 06/27/2015 Height Weight BMI Blood Pressure 5 ft 0.5 in 122.8 lbs 23.59 kg/m2 108/62 mm[Hg] 05/15/2015 Height Weight BMI Blood Pressure 5 ft 0.5 in 124.6 lbs 23.93 kg/m2 110/72 mm[Hg] 03/29/2015 Height Weight BMI Blood Pressure 5 ft 0.5 in 120.4 lbs 23.12 kg/m2 130/70 mm[Hg] 02/26/2015 BMI 23.39 kg/m2 02/26/2015 Height Weight Blood Pressure 5 ft 0.5 in 121.8 lbs 115/72 mm[Hg] 01/09/2015 Height Weight BMI Blood Pressure 5 ft 0.5 in 123.8 lbs 23.78 kg/m2 130/74 mm[Hg] 12/27/2014 Height Weight BMI Blood Pressure 5 ft 0.5 in 125.6 lbs 24.12 kg/m2 115/60 mm[Hg] 11/20/2014 Height Weight BMI Blood Pressure 5 ft 0.5 in 125.4 lbs 24.08 kg/m2 120/58 mm[Hg] 10/10/2014 Height Weight BMI Blood Pressure 5 ft 0.5 in 122.6 lbs 23.55 kg/m2 130/70 mm[Hg] 06/09/2014 Height Weight 5 ft 0.5 in 123.6 lbs 04/26/2014 Height Weight 5 ft 0.5 in 123.4 lbs 02/07/2014 Height Weight 5 ft 1 in 124 lbs 01/18/2014 Height Weight 5 ft 0.5 in 121.8 lbs 01/12/2014 Height Weight 5 ft 0.5 in 123.8 lbs 10/17/2013 Height Weight 5 ft 0.5 in 127 lbs 04/11/2013 Height Weight 5 ft 0.5 in 128.8 lbs 12/23/2012 Height Weight 5 ft 0.5 in 128 lbs 12/06/2012 Height Weight 5 ft 0.5 in 132.4 lbs 10/21/2012 Height Weight 5 ft 0.5 in 132.4 lbs 07/19/2012 Height Weight 5 ft 0.5 in 129.6 lbs 01/12/2012 Height Weight 5 ft 0.5 in 128.2 lbs 11/07/2011 Height Weight 5 ft 0.5 in 130.4 lbs 08/06/2011 Height Weight 5 ft 0.5 in 128 lbs 08/01/2011 Height Weight 5 ft 0.5 in 128 lbs 04/22/2011 Height Weight 5 ft 0.5 in 130.8 lbs 02/03/2011 Height Weight 5 ft 0.5 in 129.2 lbs 12/16/2010 Height Weight 5 ft 0.5 in 133 lbs 11/25/2010 Height Weight 5 ft 0.5 in 133.4 lbs 10/25/2010 Height Weight 5 ft 0.5 in 132 lbs 10/24/2010 Height Weight 5 ft 0.5 in 135.6 lbs 09/04/2010 Height Weight 5 ft 0.5 in 129 lbs 07/30/2010 Height Weight 5 ft 0.5 in 132.4 lbs 07/24/2010 Height Weight 5 ft 0.5 in 130 lbs 06/27/2010 Height Weight 5 ft 0.5 in 130 lbs 05/31/2010 Height Weight 5 ft 0.5 in 130 lbs 05/17/2010 Weight 130 lbs 05/15/2010 Height Weight 5 ft 0.5 in 130.4 lbs 05/03/2010 Height Weight 5 ft 0.5 in 130.4 lbs 03/14/2010 Height Weight 5 ft 131.4 lbs 12/12/2009 Height Weight 5 ft 133 lbs
[2018-09-16 09:05] VITALS: BP 109/59
== END | disposition home or self-care (01) ==
LOC: OR 07:23
PROVIDERS: ATTEND Internal Medicine Gastroenterology
DX: K22.2 Esophageal obstruction (principal); K29.70 Gastritis, unspecified, without bleeding; K22.70 Barrett's esophagus without dysplasia; K22.8 Other specified diseases of esophagus; R63.4 Abnormal weight loss; Z01.810 Encounter for preprocedural cardiovascular examination; Z01.812 Encounter for preprocedural laboratory examination; Z80.0 Family history of malignant neoplasm of digestive organs
CPT/HCPCS: 36415; 43235; 85025; 93005; J2250; J2704; 43239